=== PATIENT | female | born 1965 | race African-American/Black ===

== ENCOUNTER 2020-03-29 19:53 | Inpatient (IN) | payer OTHER ==
[~2020-03-29] VITALS: Ht 162.6 cm; Wt 81.2 kg
[2020-03-29] MEDS ORDERED: LEVOFLOXACIN 750MG PREMIX 150 ML IV ONE (20:45)
[2020-03-29] MEDS ORDERED: ACETAMINOPHEN 325MG TABLET PO ONE (20:45)
[2020-03-29 22:18] LABS: EOSINOPHILS % 0.1 % (0.0-5.0); HEMATOCRIT. 38.4 % (36.0-48.0); HEMOGLOBIN. 12.9 g/dL (12.0-16.0); MEAN CORPUSCULAR HEMOGLOBIN 27.1 pg (28.0-32.0); MEAN CORPUSCULAR VOLUME 80.8 fL (81.0-99.0); MEAN PLATELET VOLUME 7.9 fl (7.4-10.4); MONOCYTES % 5.9 % (2.0-8.0); PLATELET 185 x1000/uL (130-400); RED BLOOD CELL COUNT 4.75 mill/uL (4.2-5.4); RED CELL DISTRIBUTION WIDTH 14.3 % (11.6-14.6)
[2020-03-29 22:24] LABS: CHLORIDE 98 mEq/L (98-107)
[2020-03-29 22:37] LABS: D-DIMER 13.49 mg/L FEU (<0.50); PARTIAL THROMBOPLASTIN TIME 25.9 sec (23.4-31.0); PROTHROMBIN TIME 10.5 sec (9.6-11.0)
[2020-03-29] MEDS ORDERED: ENOXAPARIN 80MG/0.8ML SYR SUBCUT ONE (22:45)
[2020-03-30] MEDS ORDERED: IOHEXOL-350 100 ML BOTTLE ONE (03:33)
[2020-03-30] MEDS ORDERED: MAGNESIUM/ALUMINUM HYDROXIDE/SIMETHICONE 30ML UDC PO PRN (06:45)
[2020-03-30] MEDS ORDERED: ONDANSETRON HCL 4MG/2ML INJ IV PRN (06:45)
[2020-03-30] MEDS ORDERED: LORAZEPAM 2MG/ML CPJ IV PRN (06:45)
[2020-03-30] MEDS ORDERED: IPRATROPIUM/ALBUTEROL 0.5-3(2.5)MG/3ML NEB NEB PRN (06:45)
[2020-03-30] MEDS ORDERED: DEXTROSE 50% WATER 50ML SYRINGE IV PRN (06:45)
[2020-03-30] MEDS ORDERED: CLONIDINE 0.1MG TABLET PO PRN (06:45)
[2020-03-30] MEDS ORDERED: MORPHINE SULFATE 2 MG/ML CPJ (NOT FOR IM USE) IV PRN (06:45)
[2020-03-30] MEDS ORDERED: ENOXAPARIN 40MG/0.4ML SYR SUBCUT SCH (06:45)
[2020-03-30] MEDS ORDERED: DIPHENHYDRAMINE 50MG/ML VIAL IV PRN (06:45)
[2020-03-30] MEDS ORDERED: NA PHOS,M-B/NA PHOS,DI-BA ENEMA 118ML PR PRN (06:45)
[2020-03-30] MEDS ORDERED: HYDRALAZINE 20MG/ML VIAL IV PRN (06:45)
[2020-03-30] MEDS ORDERED: HYDROCODONE/ACETAMINOPHEN 10/325MG TABLET PO PRN (06:45)
[2020-03-30] MEDS ORDERED: DOCUSATE SODIUM 100MG CAPSULE PO PRN (06:45)
[2020-03-30 06:55] LABS: CLARITY URINE CLEAR (CLEAR); COLOR URINE YELLOW (YELLOW); KETONES URINE NEGATIVE (NEGATIVE); LEUKOCYTE ESTERASE URINE NEGATIVE (NEGATIVE); NITRITE URINE NEGATIVE (NEGATIVE); OCCULT BLOOD URINE NEGATIVE (NEGATIVE); PH URINE 5.5 (4.5-8.0); PROTEIN URINE NEGATIVE (NEGATIVE); SPECIFIC GRAVITY URINE 1.008 (1.005-1.030); UROBILINOGEN URINE 0.2 E.U./dL (0.2-1.0)
[2020-03-30] MEDS: INSULIN LISPRO 100 UNITS/ML SUBCUT SCH ×4 (08:20→21:00)
[2020-03-30] MEDS: BLOOD SUGAR DIAGNOSTIC STRIP TEST SCH ×4 (08:39→21:00)
[2020-03-30] MEDS: CEFTRIAXONE 1 G PREMIX 50 ML IV SCH (08:48)
[2020-03-30] MEDS: ENOXAPARIN 80MG/0.8ML SYR SUBCUT SCH (08:49)
[2020-03-30] MEDS: AZITHROMYCIN 500 MG in DEXT 5% WATER 250 ML IV SCH (09:20)
[2020-03-30] MEDS: SODIUM CHLORIDE 0.9% INJ 3ML FLUSH IVF SCH (13:29)
[2020-03-30] MEDS ORDERED: ALBUTEROL 6.7GM HFA INHALER ORI PRN (15:15)
[2020-03-30] MEDS: ACETAMINOPHEN 325MG TABLET PO PRN (18:09)
[2020-03-30] MEDS: GUAIFENESIN 600MG ER TABLET PO SCH (21:00)
[2020-03-30 23:45] VITALS: BP 129/82
[2020-03-31] VITALS (7 sets, daily range): BP systolic 115–133; BP diastolic 64–82
[2020-03-31] MEDS: ENOXAPARIN 80MG/0.8ML SYR SUBCUT SCH ×3 (01:16→21:25)
[2020-03-31] MEDS: GUAIFENESIN 200MG/10ML SUGAR FREE UDC PO PRN ×2 (01:16→21:38)
[2020-03-31] MEDS: SODIUM CHLORIDE 0.9% INJ 3ML FLUSH IVF SCH ×3 (01:17→21:25)
[2020-03-31] MEDS: ACETAMINOPHEN 325MG TABLET PO PRN ×2 (01:17→18:10)
[2020-03-31] MEDS ORDERED: METF-414 PO (02:09)
[2020-03-31 06:12] LABS: BASOPHILS % 0.7 % (0.0-2.0); EOSINOPHILS % 0.1 % (0.0-5.0); HEMATOCRIT. 34.5 % (36.0-48.0); HEMOGLOBIN. 11.5 g/dL (12.0-16.0); LYMPHOCYTES % 42.2 % (20.0-50.0); MEAN CORPUSCULAR HEMOGLOBIN 26.8 pg (28.0-32.0); MEAN CORPUSCULAR VOLUME 80.5 fL (81.0-99.0); MEAN PLATELET VOLUME 7.5 fl (7.4-10.4); MONOCYTES % 5.1 % (2.0-8.0); NEUTROPHILS % 51.9 % (40.0-76.0); PLATELET 200 x1000/uL (130-400); RED BLOOD CELL COUNT 4.28 mill/uL (4.2-5.4); RED CELL DISTRIBUTION WIDTH 14.3 % (11.6-14.6)
[2020-03-31 06:19] LABS: CHLORIDE 103 mEq/L (98-107)
[2020-03-31] MEDS: BLOOD SUGAR DIAGNOSTIC STRIP TEST SCH ×4 (06:57→21:00)
[2020-03-31] MEDS: INSULIN LISPRO 100 UNITS/ML SUBCUT SCH ×4 (08:10→21:00)
[2020-03-31] MEDS: CEFTRIAXONE 1 G PREMIX 50 ML IV SCH (09:39)
[2020-03-31] MEDS: GUAIFENESIN 600MG ER TABLET PO SCH ×2 (09:39→21:25)
[2020-03-31] MEDS: AZITHROMYCIN 500 MG in DEXT 5% WATER 250 ML IV SCH (10:27)
[2020-03-31] MEDS: DEXAMETHASONE 4MG TABLET PO SCH (14:25)
[2020-03-31] MEDS: ALBUTEROL 6.7GM HFA INHALER ORI SCH ×2 (14:56→21:00)
[2020-04-01] VITALS (7 sets, daily range): BP systolic 109–146; BP diastolic 64–86
[2020-04-01] MEDS: ALBUTEROL 6.7GM HFA INHALER ORI SCH ×4 (02:20→21:35)
[2020-04-01] MEDS: SODIUM CHLORIDE 0.9% INJ 3ML FLUSH IVF SCH ×2 (05:46→13:18)
[2020-04-01] MEDS: BLOOD SUGAR DIAGNOSTIC STRIP TEST SCH ×4 (05:46→21:00)
[2020-04-01] MEDS: GUAIFENESIN 600MG ER TABLET PO SCH (08:08)
[2020-04-01] MEDS: DEXAMETHASONE 4MG TABLET PO SCH (08:08)
[2020-04-01] MEDS: ENOXAPARIN 80MG/0.8ML SYR SUBCUT SCH (08:09)
[2020-04-01] MEDS: INSULIN LISPRO 100 UNITS/ML SUBCUT SCH ×3 (08:09→18:14)
[2020-04-01] MEDS: CEFTRIAXONE 1 G PREMIX 50 ML IV SCH (12:45)
[2020-04-01] MEDS: AZITHROMYCIN 500 MG in DEXT 5% WATER 250 ML IV SCH (12:45)
[2020-04-01] MEDS: GUAIFENESIN 200MG/10ML SUGAR FREE UDC PO PRN (18:13)
[2020-04-02] VITALS: BP 118/61
[2020-04-02] MEDS: GUAIFENESIN 600MG ER TABLET PO SCH ×2 (00:28→09:03)
[2020-04-02] MEDS: ACETAMINOPHEN 325MG TABLET PO PRN (00:28)
[2020-04-02] MEDS: ENOXAPARIN 80MG/0.8ML SYR SUBCUT SCH ×2 (00:28→09:03)
[2020-04-02] MEDS: SODIUM CHLORIDE 0.9% INJ 3ML FLUSH IVF SCH ×3 (00:29→13:35)
[2020-04-02] MEDS: INSULIN LISPRO 100 UNITS/ML SUBCUT SCH ×3 (00:30→13:40)
[2020-04-02] MEDS: ALBUTEROL 6.7GM HFA INHALER ORI SCH ×5 (02:10→14:56)
[2020-04-02 04:00] VITALS: BP_SYST 119; BP_SYST 127; BP_DIAS 48; BP_DIAS 70
[2020-04-02] MEDS: BLOOD SUGAR DIAGNOSTIC STRIP TEST SCH ×2 (07:57→13:35)
[2020-04-02 08:00] VITALS: BP 138/87
[2020-04-02] MEDS: DEXAMETHASONE 4MG TABLET PO SCH (09:03)
[2020-04-02] MEDS: AZITHROMYCIN 500 MG in DEXT 5% WATER 250 ML IV SCH (09:04)
[2020-04-02 12:00] VITALS: BP 104/60
[2020-04-02] MEDS ORDERED: SODIUM CHLORIDE 0.9% 1,000 ML IV SCH (13:00)
[2020-04-02] MEDS: CEFTRIAXONE 1 G PREMIX 50 ML IV SCH (13:35)
[2020-04-02 14:45] VITALS: BP 104/60
[2020-04-02 16:00] VITALS: BP 119/74
== END 2020-04-02 18:07 | disposition home or self-care (01) | DRG 871 ==
LOC: ER 19:53 → ENRESERV 03-30 22:06 → 7WST 03-30 23:54
PROVIDERS: ADMIT Internal Medicine; ATTEND Internal Medicine
DX: A41.89 Other specified sepsis (principal); U07.1 COVID-19; R65.21 Severe sepsis with septic shock; J12.89 Other viral pneumonia; J96.00 Acute respiratory failure, unspecified whether with hypoxia or hypercapnia; E44.1 Mild protein-calorie malnutrition; G93.40 Encephalopathy, unspecified; D68.59 Other primary thrombophilia; E11.9 Type 2 diabetes mellitus without complications; I25.10 Atherosclerotic heart disease of native coronary artery without angina pectoris; I10 Essential (primary) hypertension; G90.8 Other disorders of autonomic nervous system; R59.0 Localized enlarged lymph nodes; R16.0 Hepatomegaly, not elsewhere classified; R79.89 Other specified abnormal findings of blood chemistry; E04.1 Nontoxic single thyroid nodule; Z68.30 Body mass index [BMI] 30.0-30.9, adult
CPT/HCPCS: 36415; 71045; 71275; 80053; 82962; 83605; 83880; 84145; 84484; 85025; 85379; 85384; 87635; 93005; 93306; 93970; 99285; J0456; J0696; J1650; J1815; J1956; J7060; J8540